=== PATIENT | male | born 1985 ===

== ENCOUNTER → 2019-05-27 | Outpatient (CLI) | payer OTHER | END | disposition home or self-care (01) | LOC: OFIC 805 09:15 | DX: H66.93 Otitis media, unspecified, bilateral (principal); H90.3 Sensorineural hearing loss, bilateral ==

== ENCOUNTER 2019-07-09 10:58 | Outpatient (CLI) | payer OTHER ==
[~2019-07-09] VITALS: Ht 152.4 cm; Wt 113.4 kg
== END 2019-07-09 13:41 | disposition home or self-care (01) ==
LOC: OFIC 805 10:58
DX: H66.93 Otitis media, unspecified, bilateral (principal); H72.03 Central perforation of tympanic membrane, bilateral; H90.3 Sensorineural hearing loss, bilateral